=== PATIENT | female | born 1990 | race Hispanic/Latino ===

== ENCOUNTER 2017-12-31 18:09 | Emergency (ER) | payer BC ==
[~2017-12-31] VITALS: Ht 160 cm; Wt 86.2 kg
[2017-12-31] MEDS ORDERED: ACETAMINOPHEN 1000 MG/100 ML IV STA (18:37)
[2017-12-31] MEDS ORDERED: ONDANSETRON HCL INJ 2 MG/ML VIAL IV STA (18:42)
[2017-12-31] MEDS ORDERED: SODIUM CHLORIDE 0.9% 1000ML 1,000 ML IV STA ×2 (18:42→20:00)
[2017-12-31 18:52] LABS: BASOPHILS % 0.1 % (0.0-1.0); HEMOGLOBIN 13.8 g/dL (12.0-16.0); LYMPHOCYTES # (AUTO) 0.9 (1.0-3.2); LYMPHOCYTES % 6.1 % (18.0-39.1); MEAN CORPUSCULAR HEMOGLOBIN 32.6 pg (28-32); MEAN CORPUSCULAR HGB CONC 35.4 g/dL (31-35); MEAN CORPUSCULAR VOLUME 92.2 fL (81-99); MONOCYTES # (AUTO) 0.9 (0.2-0.8); MONOCYTES % 6.2 % (4.4-11.3); NEUTROPHILS # (AUTO) 13.1 (2.1-6.9); NEUTROPHILS % 87.1 % (38.7-80.0); PLATELET COUNT 189 x10e3/uL (140-360); RED BLOOD COUNT 4.23 x10e6/uL (3.6-5.1); RED CELL DISTRIBUTION WIDTH 11.9 % (11.7-14.4)
[2017-12-31 19:07] LABS: ALANINE AMINOTRANSFERASE 18 IU/L (0-55); ALBUMIN 3.4 g/dL (3.5-5.0); ALBUMIN/GLOBULIN RATIO 0.8 (0.8-2.0); ALKALINE PHOSPHATASE 69 IU/L (40-150); ANION GAP 12.9 mmol/L (8-16); BLOOD UREA NITROGEN 7 mg/dL (7-26); BUN/CREATININE RATIO 9 (6-25); CALCIUM 9.2 mg/dL (8.4-10.2); CARBON DIOXIDE 25 mmol/L (22-29); CHLORIDE 100 mmol/L (98-107); CREATININE, SERUM 0.75 mg/dL (0.57-1.11); EST GLOMERULAR FILTRATION RATE > 60 ML/MIN (60-); GLUCOSE 140 mg/dL (74-118); POTASSIUM 3.9 mmol/L (3.5-5.1); SODIUM 134 mmol/L (136-145)
[2017-12-31 19:10] LABS: AMYLASE 25 U/L (25-125); CREATINE KINASE 38 IU/L (29-168); LIPASE 7 U/L (8-78)
[2017-12-31 19:30] LABS: THYROID STIMULATING HORMONE 0.349 uIU/mL (0.350-4.940)
--- NOTE | 2017-12-31 19:45 | Diagnostic Imaging Report ---
EXAMINATION: CHEST SINGLE (PORTABLE) INDICATION: Chills. Fever. COMPARISON: None FINDINGS: AP view TUBES and LINES: None. LUNGS: Lungs are moderately inflated. Bilateral peribronchial cuffing. There is no evidence of pneumonia or pulmonary edema. PLEURA: No pleural effusion or pneumothorax. HEART AND MEDIASTINUM: The cardiomediastinal silhouette is unremarkable. BONES AND SOFT TISSUES: No acute osseous lesion. Soft tissues are unremarkable. UPPER ABDOMEN: No free air under the diaphragm. IMPRESSION: Bilateral peribronchial cuffing, which could represent viral etiology or reactive airway disease. Signed by: Dr. Modesto Narayanan M.D. on 12/31/2017 7:41 PM
[2017-12-31] MEDS ORDERED: KETOROLAC TROMETHAMINE 30 MG/ML VIAL IV STA (20:00)
[2017-12-31 21:51] LABS: CLARITY,URINE CLOUDY (CLEAR); COLOR,URINE STRAW (YELLOW); LEUKOCYTE ESTERASE ,URINE 1+ (NEGATIVE); NITRITE,URINE NEGATIVE (NEGATIVE); PROTEIN,URINE DIPSTICK 1+ (NEGATIVE)
[2017-12-31 21:52] LABS: BILIRUBIN,URINE NEGATIVE (NEGATIVE); KETONES,URINE 1+ (NEGATIVE); URINE UROBILINOGEN 1 mg/dL (0.2 - 1)
[2017-12-31 22:05] LABS: AMORPHOUS SEDIMENT,URINE MODERATE (FEW); BACTERIA,URINE MODERATE /HPF; EPITHELIAL CELLS,URINE FEW /LPF
[2017-12-31] MEDS ORDERED: CEFTRIAXONE SOD 1 GM VIAL IV ONE (22:15)
[2017-12-31 23:23] VITALS: BP 102/64
== END 2017-12-31 23:30 | disposition home or self-care (01) ==
LOC: ER 18:09
DX: R50.9 Fever, unspecified (principal); R11.2 Nausea with vomiting, unspecified; N39.0 Urinary tract infection, site not specified
CPT/HCPCS: 36415; 71045; 80053; 81001; 82150; 82550; 82553; 83518; 83605; 83690; 84443; 84484; 84702; 85025; 87040; 87070; 87086; 87186; 99284; J0696; J1885; J2405; J7030

== ENCOUNTER 2018-01-01 17:30 | Inpatient (IN) | payer BC ==
[~2018-01-01] VITALS: Ht 165.1 cm; Wt 79.4 kg
--- NOTE | 2018-01-01 18:31 | Diagnostic Imaging Report ---
Exam: Head CT without IV contrast History: AMS Comparison studies: None Technique: Axial images were obtained from the skull base to the vertex. Coronal and sagittal reconstructions obtained from the axial data. Findings: Scalp/skull: No abnormalities. No fractures, blastic or lytic lesions. Extra-axial spaces: No masses. No fluid collections. Brain sulci: Appropriate for age. Ventricles: Normal in size and configuration. No hydrocephalus. Parenchyma: No abnormal densities. No masses, hemorrhage, acute or chronic cortical vascular insults. Sellar/suprasellar region: No abnormalities Craniocervical junction: Patent foramen magnum. No Chiari one malformation. IMPRESSION: No acute abnormalities. A preliminary report was provided by Dr. Dubon on 01/0101/01/2018 Signed by: Dr. Efrem Levi M.D. on 01/02/2018 12:27 PM
--- NOTE | 2018-01-01 19:01 | Diagnostic Imaging Report ---
PROCEDURE: A single AP view of the chest. COMPARISON: Chest radiograph 12/31/2017 INDICATIONS: AMS FINDINGS: Lines/tubes: None. Lungs: The lungs are poorly inflated with vascular crowding and bibasilar atelectasis. There is no evidence of consolidative pneumonia or pulmonary edema. Pleura: There is no pleural effusion or pneumothorax. Heart and mediastinum: The heart and the mediastinum are unremarkable. Bones: No acute bony abnormality. IMPRESSION: No acute cardiopulmonary disease. Dictated by: Johann Calixto M.D. on 01/01/2018 at 19:05 Electronically approved by: Johann Calixto M.D. on 01/01/2018 at 19:05
[2018-01-01 19:03] LABS: BASOPHILS % 0.1 % (0.0-1.0); HEMATOCRIT 34.1 % (34.2-44.1); HEMOGLOBIN 12.1 g/dL (12.0-16.0); LYMPHOCYTES # (AUTO) 1.3 (1.0-3.2); LYMPHOCYTES % 11.8 % (18.0-39.1); MEAN CORPUSCULAR HEMOGLOBIN 32.5 pg (28-32); MEAN CORPUSCULAR HGB CONC 35.5 g/dL (31-35); MEAN CORPUSCULAR VOLUME 91.7 fL (81-99); MONOCYTES # (AUTO) 1.1 (0.2-0.8); MONOCYTES % 9.3 % (4.4-11.3); NEUTROPHILS # (AUTO) 8.9 (2.1-6.9); NEUTROPHILS % 78.3 % (38.7-80.0); PLATELET COUNT 187 x10e3/uL (140-360); RED BLOOD COUNT 3.72 x10e6/uL (3.6-5.1); RED CELL DISTRIBUTION WIDTH 11.9 % (11.7-14.4)
[2018-01-01 19:16] LABS: INR 1.19; PROTHROMBIN TIME 14.2 seconds (11.9-14.5)
[2018-01-01] MEDS ORDERED: NALOXONE HCL INJ 0.4 MG/ML AMP ONE ×2 (19:16→19:22)
[2018-01-01] MEDS ORDERED: NALOXONE HCL INJ 0.4 MG/ML AMP IV STA ×2 (19:20→19:30)
[2018-01-01 19:23] LABS: ACETAMINOPHEN 7 ug/mL (10-30)
[2018-01-01 19:26] LABS: SALICYLATE < 5.0 mg/dL (0-30)
[2018-01-01 19:28] LABS: CLARITY,URINE SL CLOUDY (CLEAR); COLOR,URINE YELLOW (YELLOW); KETONES,URINE 2+ (NEGATIVE); LEUKOCYTE ESTERASE ,URINE 1+ (NEGATIVE); NITRITE,URINE POSITIVE (NEGATIVE); PROTEIN,URINE DIPSTICK TRACE (NEGATIVE)
[2018-01-01 19:29] LABS: BILIRUBIN,URINE NEGATIVE (NEGATIVE); PREGNANCY TEST, URINE NEGATIVE (NEGATIVE); URINE UROBILINOGEN 1 mg/dL (0.2 - 1)
[2018-01-01 19:30] LABS: ALANINE AMINOTRANSFERASE 15 IU/L (0-55); ALBUMIN 2.9 g/dL (3.5-5.0); ALBUMIN/GLOBULIN RATIO 0.8 (0.8-2.0); ALKALINE PHOSPHATASE 62 IU/L (40-150); ANION GAP 11.3 mmol/L (8-16); BLOOD UREA NITROGEN 7 mg/dL (7-26); BUN/CREATININE RATIO 12 (6-25); CALCIUM 8.8 mg/dL (8.4-10.2); CARBON DIOXIDE 25 mmol/L (22-29); CHLORIDE 105 mmol/L (98-107); CREATINE KINASE 27 IU/L (29-168); CREATININE, SERUM 0.58 mg/dL (0.57-1.11); EST GLOMERULAR FILTRATION RATE > 60 ML/MIN (60-); GLUCOSE 99 mg/dL (74-118); POTASSIUM 3.3 mmol/L (3.5-5.1); SODIUM 138 mmol/L (136-145)
[2018-01-01] MEDS ORDERED: ONDANSETRON HCL INJ 2 MG/ML VIAL IV STA (19:31)
[2018-01-01] MEDS ORDERED: ONDANSETRON HCL INJ 2 MG/ML VIAL ONE (19:32)
[2018-01-01 19:34] LABS: AMPHETAMINES SCREEN,URINE NEGATIVE (NEGATIVE); BENZODIAZEPINES SCREEN,URINE NEGATIVE (NEGATIVE); PHENCYCLIDINE SCREEN,URINE NEGATIVE (NEGATIVE)
[2018-01-01 19:50] LABS: EPITHELIAL CELLS,URINE RARE /LPF
[2018-01-01 19:51] LABS: BACTERIA,URINE RARE /HPF; RBC,URINE >50 /HPF (0-5); WBC,URINE (MAN) >50 /HPF (0-5)
[2018-01-01] MEDS ORDERED: NALOXONE HCL 2MG/2 ML SYRINGE ONE (19:57)
[2018-01-01] MEDS ORDERED: NALOXONE HCL 2MG/2 ML SYRINGE IV STA (20:00)
[2018-01-01] MEDS ORDERED: LIDOCAINE HCL 1% LOCAL INJ 20 ML VIAL ONE (20:52)
[2018-01-01] MEDS ORDERED: NALOXONE HCL IV SCH (21:00)
[2018-01-01] MEDS ORDERED: SODIUM CHLORIDE 0.9% IV SCH (21:00)
[2018-01-01] MEDS ORDERED: CEFTRIAXONE SOD 1 GM VIAL IM ONE (21:15)
[2018-01-01] MEDS ORDERED: ACETAMINOPHEN 1000 MG/100 ML 100 ML IV ONE (22:33)
[2018-01-01] MEDS: SODIUM CHLORIDE 0.9% 1000ML 1,000 ML IV SCH (22:37)
[2018-01-01] MEDS ORDERED: ACETAMINOPHEN 1000 MG/100 ML IV STA (23:13)
[2018-01-02] MEDS ORDERED: KETOROLAC TROMETHAMINE 30 MG/ML VIAL IV STA (04:25)
[2018-01-02] MEDS ORDERED: KETOROLAC TROMETHAMINE 30 MG/ML VIAL ONE (04:26)
[2018-01-02] MEDS ORDERED: IBUPROFEN 600 MG TAB ONE (04:26)
[2018-01-02] MEDS ORDERED: ACETAMINOPHEN 325 MG TAB PO ONE (04:30)
[2018-01-02] MEDS ORDERED: IBUPROFEN 600 MG TAB PO STA (04:32)
[2018-01-02] MEDS: SODIUM CHLORIDE 0.9% 1000ML 1,000 ML IV SCH ×3 (05:53→19:46)
[2018-01-02] MEDS ORDERED: SODIUM CHLORIDE 0.9% 500ML 0 ML ONE (08:17)
[2018-01-02] MEDS ORDERED: LIDOCAINE HCL 2% LOCAL 20 ML VIAL ONE (08:17)
[2018-01-02 09:29] LABS: APPEARANCE,CSF CLEAR (CLEAR); COLOR,CSF COLORLESS (COLORLESS); TUBE NUMBER 3
[2018-01-02 09:30] LABS: WHITE BLOOD CELL,CSF 0 cells/uL (0-5)
[2018-01-02] MEDS ORDERED: HYDROCODONE/APAP 5MG-325MG TAB PO PRN (10:30)
[2018-01-02] MEDS ORDERED: CEFTRIAXONE SOD 1 GM VIAL IV SCH (12:00)
--- NOTE | 2018-01-02 12:35 | Diagnostic Imaging Report ---
Exam: Brain MRI without IV contrast History: Altered mental status, fever, found unresponsive Comparison studies: Head CT 01/0101/01/2018 Technique: 3-D T1 with axial, coronal and sagittal reformats, axial T2 FS, axial T2 FLAIR, axial DWI and axial T2*GRE. Intravenous contrast: None Findings: Scalp: Normal in signal. No masses. Bone marrow: Normal in signal intensity. Brain sulci: Appropriate for age. Ventricles: Normal in size. No hydrocephalus. Extra axial spaces: No mass, no fluid collection. Parenchyma: No abnormal signal intensities. No abnormal restricted diffusion to No masses, hemorrhage, acute or chronic ischemic insults. Suprasellar region: No abnormalities. Craniocervical junction: Patent foramen magnum. No Chiari malformation. Vessels: Normal flow-voids in the arteries and sinuses. IMPRESSION: No intracranial abnormalities. Signed by: Dr. Efrem Levi M.D. on 01/02/2018 12:31 PM
--- NOTE | 2018-01-02 12:36 | Consultation ---
DATE OF CONSULTATION: January 02, 2018 INFECTIOUS DISEASE CONSULTATION REASON FOR CONSULTATION: Fever and chills. HISTORY OF PRESENT ILLNESS: This patient, who is a 27-year-old female, denies any past medical history. 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 She is coming with 4 days of fever, chills, body aches, not feeling well, nausea, felt really bad. Before that she was in good health. She had some headache and when she first came to the emergency room, she had severe headache; so, an LP was done. Currently she is lying in bed, alert, oriented, follows command but not feeling well. PAST MEDICAL HISTORY: Denies. PAST SURGICAL HISTORY: Denies. ALLERGIES: NKA. SOCIAL HISTORY: There is no smoking, drug abuse, alcohol abuse. FAMILY HISTORY: Otherwise unremarkable. LAB: White count 11.3, hemoglobin 12, hematocrit 34, her platelet 187. Spinal fluid: WBC is 0, RBC is 3. Her urine drug screen is negative. Sodium 138, potassium 3.3, creatinine 0.58. Liver enzymes within normal limit. She had a chest x-ray which was negative. PHYSICAL EXAMINATION GENERAL: She is currently alert, oriented, does not seem to be in acute distress. VITAL SIGNS: Stable. Afebrile now. HEENT: She does not appear icteric. NECK: Supple. CHEST: Clear. HEART: S1 and S2. No S3 or S4, no murmur. ABDOMEN: Soft. Bowel sounds present. No tenderness. EXTREMITIES: No edema. IMPRESSION: Fever, chills, and generalized aches and pain. Doubt the patient has meningitis but it could be viral, could be bacterial infection, too early to tell. Would recommend to obtain EBV, CMV, toxoplasmosis, HIV, hepatitis panel. Continue with the Rocephin. Await the blood cultures. Recheck lab. Will follow. Job#: [id number] EV
[2018-01-02 13:16] LABS: HIV 1&2 AB SCREEN NON-REACTIVE (NONREACTIVE)
[2018-01-02 15:05] VITALS: BP 113/89
[2018-01-02 15:15] VITALS: BP 113/89
[2018-01-02] MEDS ORDERED: PROMETHAZINE 25MG/ NS 50ML (IV) IV PRN (19:15)
[2018-01-02 19:42] VITALS: BP 103/73
[2018-01-02 20:00] VITALS: BP 103/73
--- NOTE | 2018-01-02 20:55 | Consultation ---
DATE OF CONSULTATION: January 02, 2018 NEUROLOGY CONSULTATION HISTORY OF PRESENT ILLNESS: Ms. Livingston is a 27-year-old right hand dominant woman with past medical history significant for rheumatoid arthritis and common migraine, admitted to [facility] on January 01, 2018, with fever, chills, and confusion. Approximately 5 days prior to admission, the patient developed fevers, chills, and generalized weakness which is further described as malaise. Ms. Livingston went to an urgent care center where she was diagnosed with probable food poisoning. She was given medication to treat her nausea and discharged from the urgent care center. Two days prior to admission, the patient presented to the Emergency Center at [facility] with the same symptoms. She was diagnosed with urinary tract infection. Patient was given a prescription for oral antibiotics and discharged from the emergency center. On the afternoon of admission, the patient was found unresponsive by her sister. Her sister called 911, and Ms. Livingston was transported to the Emergency Center at [facility] by ambulance for further evaluation. Upon admission to the emergency center, the patient had a temperature of 99.5 degrees Fahrenheit, a blood pressure 134/89 mmHg and a pulse of 97 beats per minute. The patient's neurological examination in the emergency center is documented as follows: Altered mental status. Alertness is decreased. Abnormal verbal response. Response to pain is abnormal. While in the emergency center, the patient underwent an evaluation for sepsis. Among the significant findings on the patient's examination are: An elevated white blood cell count with a left shift. Ms. Livingston's urinalysis was significant for trace protein, 2+ ketones, 4+ blood, positive nitrites, 1+ leukocyte esterase, greater than 50 red blood cells and greater than 50 white blood cells. A urine drug screen was negative. While in the emergency center, the patient underwent a CT of the brain without contrast which did not show evidence of recent large territorial ischemia or hemorrhage. A chest x-ray was performed as well and did not reveal any acute abnormalities. Ms. Livingston has been placed on intravenous antibiotics for treatment of presumed pyelonephritis. While undergoing sepsis evaluation, the patient endorsed a headache which is described as follows: The pain is located across the forehead (from jewish to jewish). The pain is described as pounding or throbbing and is rated 9 to 10 out of 10. Associated with headache are photophobia, nausea without vomiting, and dizziness which is further described as lightheadedness. Ms. Livingston does not endorse an aura, phonophobia, or visual disturbance associated with the headache. Ms. Livingston reports the headache began approximately 5 days prior to admission. The patient has experienced migraine headaches since the age of 12 years. At the time of diagnosis, the patient was not prescribed medications to treat her migraines because she was "too young." In her early 20s, the patient was treated prophylactically with amitriptyline and as-needed with naproxen or tramadol. 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 Therefore treatment with this medication was discontinued. Most recently, the patient has taken naproxen on an as-needed basis for treatment of her migraines. However, her executive business coach recently discontinued this medication and replaced it with Mobic. Ms. Livingston reports experiencing 1 to 2 migraines per week. Her mother has a history of headaches, but was never formally diagnosed with migraines. REVIEW OF SYSTEMS: Fever, chills, nausea, confusion, headache, photophobia, and dizziness. Otherwise, the 12-point review of systems is negative. PAST MEDICAL HISTORY: Rheumatoid arthritis, common migraine. PAST SURGICAL HISTORY: section. PAST HOSPITALIZATIONS: For surgeries/procedures as listed. FAMILY HISTORY: Hypertension, diabetes mellitus, kidney disease, headaches, and arthritis. SOCIAL HISTORY: Ms. Livingston is single. She has bachelor's degree. 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 The patient does report a prior history of tobacco use, but stopped smoking cigarettes 7 to 8 years ago. The patient drinks alcohol 1 to 2 times per month. She does not report current or prior recreational drug use. HOME MEDICATIONS: Methotrexate, prednisone, folic acid, meloxicam. ALLERGIES: NO KNOWN DRUG ALLERGIES. NO KNOWN FOOD ALLERGIES. NO KNOWN ALLERGIES TO LATEX. NO KNOWN ALLERGIES TO IODINE OR OTHER CONTRAST MATERIALS. PHYSICAL EXAMINATION: VITAL SIGNS: Height 65 inches, weight 175 pounds, BMI 29.1 kg/m sq. Blood pressure, 113/89 mmHg, pulse 90 beats per minute, respiratory rate 16 breaths per minute, oxygen saturation 100% on 2 L by nasal cannula. GENERAL: The patient is awake, but appears drowsy. Overweight. HEENT: Normocephalic, atraumatic. Pupils are equal, round and reactive to light. Moist mucous membranes. NECK: Supple. No appreciable thyromegaly. No appreciable carotid bruits. CARDIOVASCULAR: S1, S2, regular rate and rhythm. No murmurs, rubs, or gallops. RESPIRATORY: Faint inspiratory wheezing at the right lung apex anteriorly. EXTREMITIES: The skin is warm and dry. No clubbing, cyanosis, or edema. The posterior tibial and dorsalis pedis pulses are 2+ and symmetric. SKIN: No rashes or lesions. NEUROLOGIC MEMORY/ATTENTION: The patient is awake, but appears drowsy, oriented to person, place, time, and situation. CRANIAL NERVES: Cranial nerve I-not tested. Cranial nerve II, III, IV, and -pupils are equal and round, react briskly to light (from 4 mm to 2 mm). Extraocular movements intact. No nystagmus. Cranial nerve V-sensation to light touch and pinprick is intact in the bilateral V1 through V3 distributions. Strength of the temporalis and masseter muscles is within normal limits. Cranial nerve VII-the face is symmetric as are all facial movements. Strength is within normal limits. Cranial nerve VIII-hearing is intact to finger rub bilaterally. Cranial nerve IX, X-the soft palate elevates equally and symmetrically. Cranial nerve XI-normal strength of the bilateral sternocleidomastoid and trapezius muscles. Cranial nerve XII-the tongue protrudes in midline and moves symmetrically from side to side. STRENGTH: Bulk is normal. Patient is able to maintain both arms against gravity for more than 10 seconds each without drift. She is able to maintain both legs against gravity for more than 5 seconds each without drift. Tone is normal. DTRs: Deep tendon reflexes are 1+ and symmetric at the triceps, biceps, brachioradialis, patellas, and Achilles. Plantar responses are flexor bilaterally. SENSATION: Sensation is intact to light touch and pinprick in both arms and both legs. CEREBELLAR: Eazcii-wsbb-[id number] and heel-zhang movements are slowed, but otherwise intact without dysmetria or other impairment. GAIT: Deferred. SPEECH: Spontaneous speech is normal without appreciable dysarthria or aphasia. Repetition is intact. INVOLUNTARY MOVEMENTS: None. PRONATOR DRIFT: None. LABORATORY DATA: Sodium 138, potassium 3.3, chloride 105, carbon dioxide 25, anion gap 11.3, BUN 7, creatinine 0.58, estimated GFR greater than 60, BUN to creatinine ratio 12, glucose 99, calcium 8.8. Total bilirubin 1.1, AST 11, ALT 15, alkaline phosphatase 62, total protein 6.6, albumin 2.9, globulin 3.7, albumin to globulin ratio 0.80. Creatinine kinase 27, CK-MB 0.10, troponin I is less than 0.001. Lactate acid 6.0. The CBC with differential and platelets reveals a white blood cell count of 11.3 with 78.3% neutrophils, 11.8% lymphocytes, 9.3% monocytes, 0.0% eosinophils and 0.1% basophils. The hemoglobin and hematocrit are 12.1 and 34.1, respectively. The platelet count is 187,000. PT 14.2, INR 1.19. Urinalysis is significant for trace protein, 2+ ketones, 4+ blood, positive nitrite, 1+ leukocyte esterase, greater than 50 red blood cells, greater than 50 white blood cells. The urine drug screen is negative. Salicylate level less than 5.0. Acetaminophen level 7. Ethyl alcohol level less than 10.0. Cerebrospinal fluid is clear and colorless. There are 0 white blood cells and 3 red blood cells. The cerebrospinal fluid glucose is 52. All other cerebrospinal fluid studies are pending. HIV-1 and 2 antibody nonreactive. HIV p24 antigen nonreactive. The remaining infectious disease studies are pending. Cerebrospinal fluid gram-stain shows no white blood cells and no organisms. DIAGNOSTIC STUDIES: 1. EKG of January 01, 2018: Normal sinus rhythm at 84 beats per minute. 2. Chest x-ray of January 01, 2018: No acute cardiopulmonary disease. 3. CT of the brain without contrast of January 01, 2018: On my review, there is no evidence of recent large territorial ischemia, hemorrhage, mass, or mass effect. 4. MRI of the brain without contrast of January 02, 2018: On my review, there is no evidence of recent large territorial ischemia, hemorrhage, mass, or mass effect. Brain sulci are appropriate for age. The ventricles are normal in size. There are no extraaxial masses or fluid collections. There are no findings suggestive of small vessel ischemic disease. ASSESSMENT AND PLAN: Ms. Livingston is a 27-year-old right hand dominant woman with past medical history significant for rheumatoid arthritis, common migraine, admitted to [facility] on January 01, 2018, with fevers, chills, and encephalopathy. The patient is in the process of undergoing a thorough sepsis/infectious disease evaluation. At present, it appears the patient has pyelonephritis for which she is receiving intravenous antibiotics (ceftriaxone 1 g intravenously every 24 hours). While undergoing a sepsis evaluation, the patient endorsed severe headache with vascular features as described in the history of present illness. At present, Ms. Livingston appears drowsy, but is oriented to person, place, time, and situation. Her neurological examination is otherwise nonfocal. Her laboratory data and other diagnostic studies have been reviewed and are documented above. As regard to the confusion present on admission, I strongly suspect this was a symptom of pyelonephritis. Continued evaluation and treatment of infectious etiology is recommended. Ms. Livingston has common migraine with status migrainosus. RECOMMENDATIONS: 1. Promethazine 25 mg IV every 6 hours times 2 doses. 2. Methylprednisolone 125 mg intravenously every 6 hours times 2 doses. 3. Valproate 500 mg intravenously every 6 hours times 2 doses. 4. The above medications, when given in combination, often lead to resolution of status migrainosus. The patient will be monitored clinically for her response to these and other medications if necessary. 5. Defer treatment of the remaining medical comorbidities to the primary and other services following the patient. Thank you for this consultation. I will continue to follow this patient while she remains in the hospital. TIME SPENT: 70 minutes. Job#: [id number] PANKAJ SIMPSON
[2018-01-02] MEDS: METHYLPREDNISOLONE SOD SUCC 125 MG/2ML VIAL IV SCH (21:20)
[2018-01-02] MEDS: VALPROATE SOD INJ 500 MG in SODIUM CHLORIDE 0.9% 100 ML 100 ML IV SCH (21:20)
[2018-01-02] MEDS: CEFTRIAXONE SOD 1 GM VIAL IV SCH (23:16)
[2018-01-03] VITALS (10 sets, daily range): BP systolic 106–143; BP diastolic 43–105
[2018-01-03] MEDS: VALPROATE SOD INJ 500 MG in SODIUM CHLORIDE 0.9% 100 ML 100 ML IV SCH ×2 (02:29→18:13)
[2018-01-03] MEDS: METHYLPREDNISOLONE SOD SUCC 125 MG/2ML VIAL IV SCH ×2 (02:29→18:13)
[2018-01-03] MEDS: SODIUM CHLORIDE 0.9% 1000ML 1,000 ML IV SCH ×3 (05:08→14:25)
[2018-01-03 11:34] LABS: HEMATOCRIT 35.3 % (34.2-44.1); HEMOGLOBIN 12.4 g/dL (12.0-16.0); LYMPHOCYTES # (AUTO) 0.6 (1.0-3.2); LYMPHOCYTES % 12.3 % (18.0-39.1); MEAN CORPUSCULAR HGB CONC 35.1 g/dL (31-35); MEAN CORPUSCULAR VOLUME 91.2 fL (81-99); MONOCYTES % 0.4 % (4.4-11.3); NEUTROPHILS # (AUTO) 4.3 (2.1-6.9); NEUTROPHILS % 86.9 % (38.7-80.0); PLATELET COUNT 234 x10e3/uL (140-360); RED BLOOD COUNT 3.87 x10e6/uL (3.6-5.1); RED CELL DISTRIBUTION WIDTH 11.9 % (11.7-14.4)
[2018-01-03 11:55] LABS: ALANINE AMINOTRANSFERASE 19 IU/L (0-55); ALBUMIN 2.7 g/dL (3.5-5.0); ALBUMIN/GLOBULIN RATIO 0.6 (0.8-2.0); ALKALINE PHOSPHATASE 65 IU/L (40-150); ANION GAP 11.9 mmol/L (8-16); BLOOD UREA NITROGEN 7 mg/dL (7-26); BUN/CREATININE RATIO 11 (6-25); CALCIUM 9.2 mg/dL (8.4-10.2); CARBON DIOXIDE 25 mmol/L (22-29); CHLORIDE 106 mmol/L (98-107); CREATININE, SERUM 0.65 mg/dL (0.57-1.11); EST GLOMERULAR FILTRATION RATE > 60 ML/MIN (60-); GLUCOSE 209 mg/dL (74-118); POTASSIUM 3.9 mmol/L (3.5-5.1); SODIUM 139 mmol/L (136-145)
--- NOTE | 2018-01-03 12:40 | Diagnostic Imaging Report ---
PROCEDURE:ABDOMINAL ULTRASOUND COMPARISON:None. INDICATIONS:R/O liver infection FINDINGS: Liver: Measures 16.9 cm in the midclavicular line. Normal hepatic parenchymal echogenicity. No focal mass. Main portal vein: Normal hepatopetal flow. Gallbladder: No stones or sludge. Common Bile Duct: Measures 0.3 cm with no echogenic filling defect. Sonographic Whipple's sign: Negative Right kidney: Measures 12.3 x 6.8 x 4.4 cm. No solid or cystic mass, echogenic calculi, or hydronephrosis. Normal parenchymal echogenicity. Left kidney: Measures 13.1 x 6.5 x 4.1 cm. No solid or cystic mass, echogenic calculi, or hydronephrosis. Normal parenchymal echogenicity. Spleen: Measures 11.3 x 3.4 x 4.0 cm. There is a minimal amount of fluid adjacent to the spleen. Pancreas: The visualized portions of the pancreas are normal. Inferior vena cava: Normal. Aorta: Normal. Ascites: None. CONCLUSION: 1. No acute sonographic abnormality. 2. Minimal amount of fluid adjacent to the spleen. Jt Menjivar D.O. Dictated by: Jt Mejnivar D.O. on 01/03/2018 at 12:44 Electronically approved by: Jt Menjivar D.O. on 01/03/2018 at 12:44
[2018-01-03] MEDS ORDERED: PROMETHAZINE 25MG/ NS 50ML (IV) IV PRN (17:30)
[2018-01-03] MEDS ORDERED: DIHYDROERGOTAMINE MESYLATE 1 MG/ML AMP IV SCH (18:00)
[2018-01-03] MEDS: CEFTRIAXONE SOD 1 GM VIAL IV SCH (22:16)
[2018-01-04] MEDS: METHYLPREDNISOLONE SOD SUCC 125 MG/2ML VIAL IV SCH (00:50)
[2018-01-04] MEDS: VALPROATE SOD INJ 500 MG in SODIUM CHLORIDE 0.9% 100 ML 100 ML IV SCH (00:50)
[2018-01-04 07:30] VITALS: BP 135/92
[2018-01-04 11:00] VITALS: BP 139/93
[2018-01-04 14:35] VITALS: BP 120/72
--- NOTE | 2018-01-04 14:38 | Progress Note ---
DATE: INTERNAL MEDICINE PROGRESS NOTE SUBJECTIVE: Patient doing better right now. The migraine is finally resolving. PHYSICAL EXAM VITAL SIGNS: Blood pressure 139/93, temperature 98.1, heart rate 42 per minute respiratory rate 17 per minute, and oxygen saturation 98%. HEART: Regular rhythm. Normal S1 and S2 sounds. LUNGS: Clear bilaterally. ABDOMEN: Soft. EXTREMITIES: Show no evidence of cyanosis, edema, or trauma. LABORATORY WORK: We have BMP; sodium 139, potassium 3.9, chloride 106, CO2 of 25, BUN 7, creatinine 0.65, and glucose 209. On CBC; white blood count 4.89, hemoglobin 12.4, hematocrit 35.3, and platelet count 234,000. The PT 14.2, INR 1.19, AST 13, ALT 19, total bilirubin 0.4, and alkaline phosphatase 65. FINAL IMPRESSION 1. Sepsis. 2. Pyelonephritis. 3. Status migrainosus. PLAN OF TREATMENT: Continue ceftriaxone 1 gram IV piggyback daily, promethazine 25 mg IV q.6 hours, and normal saline 125 mL an hour. Tentative discharge for tomorrow. Job#: [id number] JUSTO
[2018-01-04] MEDS ORDERED: CIPRO500 MG PO ×2 (15:34→15:35)
--- NOTE | 2018-01-07 06:31 | Progress Note ---
DATE: January 04, 2018 Ms. Livingston is feeling better. There are no new complaints. REVIEW OF SYSTEMS: HEENT: Negative. PULMONARY: Negative. CARDIAC: Negative. : Negative. PHYSICAL EXAMINATION GENERAL: Currently alert, oriented, and does not seem to be in any acute distress. VITAL SIGNS: Stable, currently afebrile. HEENT: Not icteric. NECK: Supple. CHEST: Clear. HEART: S1 and S2, no murmur. ABDOMEN: Soft. Bowel sounds present. EXTREMITIES: No edema. IMPRESSION: 1. Viral infection, resolved. 2. Urinary tract infection. There are no urine cultures but abnormal urinalysis. PLAN: Discharge home with Cipro 500 mg p.o. b.i.d. for 2 weeks. Follow up as an outpatient. Push p.o. fluids. Bedrest. Job#: [id number] GH
== END 2018-01-04 18:55 | disposition home or self-care (01) | DRG 871 ==
LOC: ER 17:30 → ERHOLD 21:11 → IMCU 01-02 14:58
PROC: 009U3ZX Drainage of Spinal Canal, Percutaneous Approach, Diagnostic (ICD-10-PCS; principal; 2018-01-01)
DX: A41.9 Sepsis, unspecified organism (principal); G93.40 Encephalopathy, unspecified; N10 Acute pyelonephritis; B34.9 Viral infection, unspecified; G43.909 Migraine, unspecified, not intractable, without status migrainosus; M06.9 Rheumatoid arthritis, unspecified; R65.20 Severe sepsis without septic shock
CPT/HCPCS: 36415; 62270; 70450; 70551; 71045; 76700; 77002; 80053; 80307; 80320; 80329; 81001; 81025; 82550; 82553; 82945; 82948; 83605; 84166; 84484; 85025; 85610; 86644; 86645; 86663; 86664; 86665; 86777; 86778; 87070; 87205; 87390; 89051; 93005; 96361; 99284; G0433; G0435; J0696; J1885; J2001; J2310; J2405; J2550; J2930; J7030; J7040